=== PATIENT | female | born 1950 | race Caucasian/White ===

== ENCOUNTER 2018-08-06 09:44 | Inpatient (IN) | payer OTHER, MEDICARE ==
[~2018-08-06] VITALS: Ht 175.3 cm; Wt 128.4 kg
[2018-08-06] MEDS ORDERED: OMEPRAZOLE40 MG PO (09:53)
[2018-08-06] MEDS ORDERED: GLYBURIDE2.5 MG PO (09:53)
[2018-08-06] MEDS ORDERED: PAXIL40 MG PO (09:54)
[2018-08-06 10:37] LABS: BASOPHILS 0.2 % (0-2); EOSINOPHILS 0.4 % (0-7); HEMATOCRIT 36.3 % (36.0-48.0); IMMATURE GRANULOCYTES 0.3 % (0-5); LYMPHOCYTES 14.2 % (15-50); MCH 28.2 pg (26.0-34.0); MCHC 33.1 g/dL (31.0-37.0); MCV 85.4 fL (80.0-100.0); MEAN PLATELET VOLUME 8.9 fL (7.4-10.4); MONOCYTES 5.1 % (2-11); NEUTROPHILS 79.8 % (40-80); PLATELET COUNT 208 10x3/uL (130-400); RBC 4.25 10x6/uL (4.00-5.40); RDW 12.6 % (11.5-14.5); WBC 10.9 10x3/uL (4.8-10.8)
[2018-08-06 10:59] LABS: ALBUMIN 3.5 g/dL (3.4-5.0); ALKALINE PHOSPHATASE 93 U/L (46-116); ALT (SGPT) 19 U/L (10-68); BILIRUBIN - TOTAL 0.89 mg/dL (0.2-1.3); CALC OSMOLALITY 282 mosm/kg (275-300); CALCIUM 8.2 mg/dL (8.5-10.1); CARBON DIOXIDE 28.3 mmol/L (21.0-32.0); CHLORIDE - SERUM 98 mmol/L (98-107); CREATININE - SERUM 1.8 mg/dL (0.6-1.3); GLUCOSE 192 mg/dL (74-106); POTASSIUM - SERUM 4.4 mmol/L (3.5-5.1); PROTEIN - SERUM 7.9 g/dL (6.4-8.2); SODIUM 136 mmol/L (136-145); UREA NITROGEN 29 mg/dL (7-18); eGFR NON AFRICAN AMERICAN 30 mL/min (90-120)
[2018-08-06 11:02] LABS: AMYLASE - SERUM 36 U/L (25-115); LIPASE 150 U/L (73-393)
[2018-08-06 11:03] LABS: TROPONIN-I < 0.017 ng/mL (0.000-0.060)
--- NOTE | 2018-08-06 11:31 | NUR ---
ORANGE JUICE AND SANDWICH TRAY TO PATIENT.
[2018-08-06 11:32] LABS: APPEARANCE CLEAR (CLEAR); BILIRUBIN NEGATIVE (NEGATIVE); COLOR STRAW (YELLOW); GLUCOSE NEGATIVE (NEGATIVE); KETONE NEGATIVE (NEGATIVE); NITRITE NEGATIVE (NEGATIVE); PROTEIN NEGATIVE (NEGATIVE); UROBILINOGEN NORMAL (NORMAL)
[2018-08-06 11:36] LABS: BACTERIA NONE SEEN /hpf (NONE SEEN); EPITHELIAL CELLS RARE /hpf (0-5); RED CELLS - URINE RARE /hpf (0-5); WHITE CELLS - URINE NSEEN /hpf (0-5)
--- NOTE | 2018-08-06 14:20 | MORECARE ---
CASE MANAGEMENT DISCHARGE SUMMARY PATIENT: MARC LOCO UNIT: [id number] ADM DATE: 08/06/18 AGE: 68 : 50 SEX: F ROOM/BED: D.9528 AUTHOR: LAILA IRIZARRY PHYSICIAN: REFERRING PHYSICIAN: CHELLY MENJIVAR MD DATE OF SERVICE: 08/06/18 Discharge Plan Patient Name: MARC LOCO [facility] [facility] 1950 Planned Disposition: Home Hlth Svc w Plan Readm Anticipated Discharge Date: 08/11/18 Discharge Date: Expected LOS: 5 Initial Reviewer: [email or web address] Initial Review Date: 08/06/2018 Generated: 08/06/18 3:20 pm DCPIA - Discharge Planning Initial Assessment Updated by [email or web address]: Miriam Clinton on 08/06/18 2:17 pm * Is the patient Alert and Oriented? Yes * How many steps to enter\exit or inside your home? None * PCP Dr. Fleming * Pharmacy [facility] * Preadmission Environment Home Alone * ADLs Partial Dependent * Partial ADLs (Assistance needed) Dressing * Equipment Power Chair or Electric Scooter Shower Chair * List name and contact numbers for known caregivers / representatives who currently or will assist patient after discharge: Demian Loco - [facility] - [phone] * Verbal permission to speak to the caregivers and representatives has been obtained from the patient. Yes * Community resources currently utilized Home Health * Please name any agencies selected above. [facility] - LOLA signed to resume at discharge. * Additional services required to return to the preadmission environment? No * Can the patient safely return to the preadmission environment? Yes * Has this patient been hospitalized within the prior 30 days at any hospital? No Patient Name: MARC LOCO Page [id number] at 1420 All edits/amendments must be made on the electronic document DICTATION DATE: 08/06/181418 SENIOR TEST ANALYST: RUY 08/06/18 141 RPT#: [id number] DC DATE: STATUS: ADM IN [facility] [address] [place] [address] END OF REPORT
--- NOTE | 2018-08-06 14:38 | MORECARE ---
CASE MANAGEMENT DISCHARGE SUMMARY PATIENT: MARC LOCO UNIT: [id number] ADM DATE: 08/06/18 AGE: 68 : 50 SEX: F ROOM/BED: D.7292 AUTHOR: LAILA IRIZARRY PHYSICIAN: REFERRING PHYSICIAN: CHELLY MENJIVAR MD DATE OF SERVICE: 08/06/18 Discharge Plan Patient Name: MARC LOCO Facility: [facility]:[place] : 1950 Planned Disposition: Home Hlth Svc w Plan Readm Anticipated Discharge Date: 08/11/18 Discharge Date: Expected LOS: 5 Initial Reviewer: [email or web address] Initial Review Date: 08/06/2018 Generated: 08/06/18 3:38 pm DCP- Discharge Planning Updated by [email or web address]: Miriam Clinton on 08/06/18 1:[address] Patient Name: MARC LOCO Admission Status: ER Accout number: [id number] Admission Date: 08-06-2018 : 1950 Admission Diagnosis: Attending: CHELLY MENJIVAR Current LOS: 1 Anticipated DC Date: 08-11-2018 Planned Disposition: Home Hlth Svc w Plan Readm [facility] Discharge Planning Comments: CM met with patient to complete initial dc planning assessment. CM educated patient on the CM role and verbal consent given by patient to complete assessment. Patient lives at home alone on the 8th floor of an apartment building with elevator access. She has a friend that comes to her home everyday and assists her with her needs including getting dressed when she does not feel well enough to dress herself. She has a different friend that assists her with house work when needed. Patient currently has [facility] and wishes to resume at discharge. LOLA form signed by patient for resumption of Home Health. Signed form placed in chart and signed form given to patient. At discharge patient plans to return to her apartment alone with resumption of [facility] services and feels this is a safe discharge. Patient denied further known discharge needs at this time. CM will continue to follow and will assist as needed with dc plans/needs. Respite Worker: Miriam Clinton RN, [facility] DCPIA - Discharge Planning Initial Assessment Updated by [email or web address]: Miriam Clinton on 08/06/18 2:17 pm * Is the patient Alert and Oriented? Yes * How many steps to enter\exit or inside your home? None * PCP Dr. Fleming * Pharmacy [facility] * Preadmission Environment Home Alone * ADLs Partial Dependent * Partial ADLs (Assistance needed) Dressing * Equipment Power Chair or Electric Scooter Shower Chair * List name and contact numbers for known caregivers / representatives who currently or will assist patient after discharge: Demian Loco - brother - [phone] * Verbal permission to speak to the caregivers and representatives has been obtained from the patient. Yes * Community resources currently utilized Home Health * Please name any agencies selected above. [facility] - LOLA signed to resume at discharge. * Additional services required to return to the preadmission environment? No * Can the patient safely return to the preadmission environment? Yes * Has this patient been hospitalized within the prior 30 days at any hospital? No Last DP export: 08/06/18 1:20 p Patient Name: MARC LOCO Page 52797 at 1438 All edits/amendments must be made on the electronic document DICTATION DATE: 08/06/181437 REGIONAL GUIDE: RUY 08/06/181437 RPT#: [id number] DC DATE: STATUS: ADM IN [facility] [address] [place] [address] END OF REPORT
[2018-08-06 15:49] VITALS: BMI 41.9
--- NOTE | 2018-08-06 16:41 | NUR ---
BILAT DRSGS APPLIED TO LOWER EXTRMETIES.
[2018-08-06 19:44] VITALS: BP 143/69
[2018-08-06 20:00] VITALS: BP 141/64
--- NOTE | 2018-08-06 21:50 | NUR ---
PT ASKING FOR TRAMADAL FOR PAIN. GILDA DURAN PAGED. ORDER TO D/C MORPHINE AND START TRAMADOL. BED LOW CALL LIGHT WITHIN REACH. WILL CONTINUE TO MONITOR.
[2018-08-06 22:00] VITALS: BP 137/64
--- NOTE | 2018-08-07 01:21 | NUR ---
PT RESTING COMFORTABLY IN BED. PT IS ALERT AND ORIENTED X4. PT DENIES ANY NEEDS AT THIS TIME. BED LOW CALL LIGHT WITHIN REACH. WILL CONTINUE TO MONITOR.
--- NOTE | 2018-08-07 02:01 | NUR ---
PT COMPLAINS OF PAIN IN LOWER ABDOMINAL PAIN AND NAUSEA. PRN ZOFRAN GIVEN. WILL [id number] TO MONITOR.
[2018-08-07 03:44] LABS: BASOPHILS 0.3 % (0-2); EOSINOPHILS 0.8 % (0-7); HEMATOCRIT 35.1 % (36.0-48.0); HEMOGLOBIN 11.4 g/dL (12-16); IMMATURE GRANULOCYTES 0.4 % (0-5); LYMPHOCYTES 20.8 % (15-50); MCH 27.8 pg (26.0-34.0); MCHC 32.5 g/dL (31.0-37.0); MCV 85.6 fL (80.0-100.0); MEAN PLATELET VOLUME 8.8 fL (7.4-10.4); MONOCYTES 10.4 % (2-11); NEUTROPHILS 67.3 % (40-80); PLATELET COUNT 193 10x3/uL (130-400); RDW 12.6 % (11.5-14.5); WBC 10.9 10x3/uL (4.8-10.8)
[2018-08-07 04:00] VITALS: BP 140/67
[2018-08-07 04:03] LABS: ALBUMIN 3.1 g/dL (3.4-5.0); ANION GAP 11.5 mmol/L (8-16); BILIRUBIN - TOTAL 0.78 mg/dL (0.2-1.3); CARBON DIOXIDE 31.5 mmol/L (21.0-32.0); CREATININE - SERUM 2.1 mg/dL (0.6-1.3); MAGNESIUM - SERUM 2.2 mg/dL (1.8-2.4); PROTEIN - SERUM 7.3 g/dL (6.4-8.2)
--- NOTE | 2018-08-07 04:14 | NUR ---
I have reviewed this patient and I concur with the Shift Assessment completed by the Licensed Practical Nurse today this shift.
--- NOTE | 2018-08-07 04:36 | NUR ---
PT RESTING COMFORTABLY IN BED. RR EVEN AND UNLABORED. NO S/S OF DISTRESS. BED LOW CALL LIGHT WITHIN REACH.
[2018-08-07 10:51] VITALS: BMI 41.8
--- NOTE | 2018-08-07 10:52 | NUR ---
Pt has an open chronic wound on the left lateral lower leg measuring 8cm x 4cm x 0.2cm. She said she hit it on her wheelchair several weeks ago. The wound bed is pink with yellow. There is a moderate serous drainage with no odor. Both lower extremities are edematous and red from knees down to toes. On the right barry there is a 1cm x 1cm x 0.2cm open area that drains serous fluid. She states it opened up and started draining when her legs swelled up. Recommendations: -Daily dressing changes to both areas using maxorb ag on open areas. -Do not wrap legs tightly, only wrap to secure dressings. -elevate legs Wound care will continue monitoring.
[2018-08-07 13:14] VITALS: Ht 175.3 cm; Wt 128.4 kg
[2018-08-07 17:26] VITALS: BP 118/67
[2018-08-07 17:36] VITALS: BP 122/75
--- NOTE | 2018-08-07 17:50 | NUR ---
I have reviewed this patient and I concur with the Shift Assessment completed by the Licensed Practical Nurse today this shift.
--- NOTE | 2018-08-07 19:15 | NUR ---
ALERT/AWAKE SITTING ON SIDE OF BED. ORIENTED X4. ADVISED TO KEEP HER LEGS UP ON THE BED. BOTH LEGS FROM KNEES DOWN TO TOES ARE RED AND EDEMATOUS. DRESSINGS ON RT LEG SHAH C/D/I AND ON L LATERAL LOWER LEG C/D/I. ORIENTED TO CALL LIGHT FOR ANY NEEDS.
--- NOTE | 2018-08-07 20:30 | NUR ---
EXCHANGED BEDS FOR ONE WITH CONTROLS THAT WORKS. WOULD NOT LET ME ELEVATE HER LEGS WHICH WAS THE PURPOSE OF THE BED EXCHANGE. STATED "I CAN NOT SLEEP WITH MY LEGS UP, IT IS TO UNCOMFORTABLY".
[2018-08-07 21:17] VITALS: BP 149/60
--- NOTE | 2018-08-07 21:50 | NUR ---
ASSISTED TO BSC TO VOID AND BACK TO BED. CHECKED BS AT 144. NO INSULIN REQUIRED PER SLIDING SCALE.
--- NOTE | 2018-08-07 22:30 | NUR ---
SILK SCREEN FRAME ASSEMBLER GIVING A BED BATH AND CLEANING HAIR WITH SHAMPOO CAP. NO OTHER NEEDS VOICED.
[2018-08-08 01:04] VITALS: BP 113/59
--- NOTE | 2018-08-08 04:13 | NUR ---
PATIENT STATING SHE IS GOING TO GO HOME. DOES NOT LIKE THE BED. I OFFERED TO GET HER A RECLINER TO SEE IF THAT WILL BE MORE COMFORTABLE UNTIL DR MENJIVAR CAN ASSESS HER TODAY FOR DISCHARGE. SHE SAID "NO, I AM GOING HOME. I HAVE ALL THE MEDICAL EQUIPMENT AND HELP I NEED AT HOME". I EXPLAINED TO HER THAT SHE IS GETTING IV ANTIBIOTIC'S FOR HER CELLULITIS AND WOUND CARE FOR HER DIABETIC ULCER. SHE STATED "I CAN GET ALL THAT AT HOME".
[2018-08-08 04:35] LABS: BASOPHILS 0.3 % (0-2); EOSINOPHILS 1.7 % (0-7); HEMATOCRIT 34.7 % (36.0-48.0); HEMOGLOBIN 11.2 g/dL (12-16); IMMATURE GRANULOCYTES 0.3 % (0-5); LYMPHOCYTES 28.9 % (15-50); MCH 28.1 pg (26.0-34.0); MCHC 32.3 g/dL (31.0-37.0); MEAN PLATELET VOLUME 8.9 fL (7.4-10.4); MONOCYTES 8.8 % (2-11); PLATELET COUNT 204 10x3/uL (130-400); RBC 3.99 10x6/uL (4.00-5.40); RDW 12.8 % (11.5-14.5); WBC 9.4 10x3/uL (4.8-10.8)
[2018-08-08 04:52] LABS: ALBUMIN 3.1 g/dL (3.4-5.0); ANION GAP 14.3 mmol/L (8-16); BILIRUBIN - TOTAL 0.94 mg/dL (0.2-1.3); CALCIUM 7.8 mg/dL (8.5-10.1); CARBON DIOXIDE 26.6 mmol/L (21.0-32.0); CREATININE - SERUM 1.9 mg/dL (0.6-1.3); MAGNESIUM - SERUM 2.2 mg/dL (1.8-2.4); POTASSIUM - SERUM 3.9 mmol/L (3.5-5.1); PROTEIN - SERUM 7.1 g/dL (6.4-8.2)
--- NOTE | 2018-08-08 05:00 | NUR ---
CANNOT BE CONVINCED TO STAY. STATED SHE IS GOING TO LEAVE AND WILL SIGN THE AMA FORM.
--- NOTE | 2018-08-08 05:38 | NUR ---
SIGNED AMA FORM. A FRIEND ARRIVED TO TRANSPORT HER HOME. IV REMOVED. JOE MILLER ESCORTED VIA TO THEIR VEHICLE.
--- NOTE | 2018-08-09 10:54 | MORECARE ---
CASE MANAGEMENT DISCHARGE SUMMARY PATIENT: MARC LOCO UNIT: [id number] ADM DATE: 08/06/18 AGE: 68 : 50 SEX: F ROOM/BED: D.8306 AUTHOR: LAILA IRIZARRY PHYSICIAN: REFERRING PHYSICIAN: CHELLY MENJIVAR MD DATE OF SERVICE: 08/09/18 Discharge Plan Patient Name: MARC LOCO Facility: [facility]:[place] : 1950 Planned Disposition: Home Hlth Svc w Plan Readm Anticipated Discharge Date: 08/11/18 Discharge Date: 08/08/2018 Expected LOS: 5 Initial Reviewer: [email or web address] Initial Review Date: 08/06/2018 Generated: 08/09/18 11:54 am Comments DCP- Discharge Planning Updated by [email or web address]: Poly Borrego on 08/09/18 9:[address] CM RECEIVED TC FROM [employer] THIS AM. PATIENT WAS DISCHARGED TO HOME 08/08/18. PATIENT IS CURRENTLY ON SERVICE. CM FAXED CLINICAL , DISCHARGE MED LIST AND D/C INSTRUCTIONS TO [employer]. DCP- Discharge Planning Updated by [email or web address]: Miriam Clinton on 08/06/18 1:[address] Patient Name: MARC LOCO Admission Status: ER Accout number: [id number] Admission Date: 08-06-2018 : 1950 Admission Diagnosis: Attending: CHELLY MENJIVAR Current LOS: 1 Anticipated DC Date: 08-11-2018 Planned Disposition: Home Hlth Svc w Plan Readm [facility] Discharge Planning Comments: CM met with patient to complete initial dc planning assessment. CM educated patient on the CM role and verbal consent given by patient to complete assessment. Patient lives at home alone on the 8th floor of an apartment building with elevator access. She has a friend that comes to her home everyday and assists her with her needs including getting dressed when she does not feel well enough to dress herself. She has a different friend that assists her with house work when needed. Patient currently has [employer] [facility] and wishes to resume at discharge. LOLA form signed by patient for resumption of Home Health. Signed form placed in chart and signed form given to patient. At discharge patient plans to return to her apartment alone with resumption of [employer] services and feels this is a safe discharge. Patient denied further known discharge needs at this time. CM will continue to follow and will assist as needed with dc plans/needs. Conservation Biology Professor: Miriam Clinton RN, [facility] DCPIA - Discharge Planning Initial Assessment Updated by [email or web address]: Miriam Clinton on 08/06/18 2:17 pm * Is the patient Alert and Oriented? Yes * How many steps to enter\exit or inside your home? None * PCP Dr. Fleming * Pharmacy [facility] * Preadmission Environment Home Alone * ADLs Partial Dependent * Partial ADLs (Assistance needed) Dressing * Equipment Power Chair or Electric Scooter Shower Chair * List name and contact numbers for known caregivers / representatives who currently or will assist patient after discharge: Demian Loco - - [phone] * Verbal permission to speak to the caregivers and representatives has been obtained from the patient. Yes * Community resources currently utilized Home Health * Please name any agencies selected above. [facility] - [facility] signed to resume at discharge. * Additional services required to return to the preadmission environment? No * Can the patient safely return to the preadmission environment? Yes * Has this patient been hospitalized within the prior 30 days at any hospital? No Last DP export: 08/06/18 1:38 p Patient Name: MARC LOCO Page 61707 at 1054 All edits/amendments must be made on the electronic document DICTATION DATE: 08/09/18 105 ELECTRICIAN'S HELPER: RUY 08/09/18 1053 RPT#: [id number] DC DATE:08/08/18 STATUS: DIS IN [facility] [address] [place] [address] END OF REPORT
--- NOTE | 2018-08-10 08:06 | MORECARE ---
CASE MANAGEMENT DISCHARGE SUMMARY PATIENT: MARC LOCO UNIT: [id number] ADM DATE: 08/06/18 AGE: 68 : 50 SEX: F ROOM/BED: D.2106 AUTHOR: EDIE,DOC PHYSICIAN: REFERRING PHYSICIAN: CHELLY MENJIVAR MD DATE OF SERVICE: 08/10/18 Discharge Plan Patient Name: MARC LOCO Facility: [facility]:[place] : 1950 Planned Disposition: Home Health Service Anticipated Discharge Date: 08/08/18 Discharge Date: 08/08/2018 Expected LOS: 2 Initial Reviewer: [email or web address] Initial Review Date: 08/06/2018 Generated: 08/10/18 9:06 am Comments DCP- Discharge Planning Updated by [email or web address]: Poly Borrego on 08/09/18 9:[address] CM RECEIVED TC FROM [employer] THIS AM. PATIENT WAS DISCHARGED TO HOME 08/08/18. PATIENT IS CURRENTLY ON SERVICE. CM FAXED CLINICAL , DISCHARGE MED LIST AND D/C INSTRUCTIONS TO [employer]. DCP- Discharge Planning Updated by [email or web address]: Miriam Clinton on 08/06/18 1:[address] Patient Name: MARC LOCO Admission Status: ER Accout number: [id number] Admission Date: 08-06-2018 : 1950 Admission Diagnosis: Attending: CHELLY MENJIVAR Current LOS: 1 Anticipated DC Date: 08-11-2018 Planned Disposition: Home th Svc w Plan Readm [facility] Discharge Planning Comments: CM met with patient to complete initial dc planning assessment. CM educated patient on the CM role and verbal consent given by patient to complete assessment. Patient lives at home alone on the 8th floor of an apartment building with elevator access. She has a friend that comes to her home everyday and assists her with her needs including getting dressed when she does not feel well enough to dress herself. She has a different friend that assists her with house work when needed. Patient currently has [facility] and wishes to resume at discharge. LOLA form signed by patient for resumption of Home Health. Signed form placed in chart and signed form given to patient. At discharge patient plans to return to her apartment alone with resumption of [facility] services and feels this is a safe discharge. Patient denied further known discharge needs at this time. CM will continue to follow and will assist as needed with dc plans/needs. Mannequin Mold Maker: Miriam Clinton RN, [facility] DCPIA - Discharge Planning Initial Assessment Updated by [email or web address]: Miriam Clinton on 08/06/18 2:17 pm * Is the patient Alert and Oriented? Yes * How many steps to enter\exit or inside your home? None * PCP Dr. Fleming * Pharmacy [facility] * Preadmission Environment Home Alone * ADLs Partial Dependent * Partial ADLs (Assistance needed) Dressing * Equipment Power Chair or Electric Scooter Shower Chair * List name and contact numbers for known caregivers / representatives who currently or will assist patient after discharge: Demian Loco - [facility] - [phone] * Verbal permission to speak to the caregivers and representatives has been obtained from the patient. Yes * Community resources currently utilized Home Health * Please name any agencies selected above. [facility] - [facility] signed to resume at discharge. * Additional services required to return to the preadmission environment? No * Can the patient safely return to the preadmission environment? Yes * Has this patient been hospitalized within the prior 30 days at any hospital? No Last DP export: 08/09/18 9:54 a Patient Name: MARC LOCO Page 09506 at 0806 All edits/amendments must be made on the electronic document DICTATION DATE: 08/10/18805 GEL COATER: RUY 08/10/18 08 RPT#: [id number] DC DATE:08/08/18 STATUS: DIS IN [facility] [address] [place] [address] END OF REPORT
== END 2018-08-08 05:40 | disposition left against medical advice (07) | DRG 638 ==
LOC: D.ER 09:44 → D.M2 13:42 → D.EDHOLD 13:42 → D.M2 13:43
PROVIDERS: Emergency Medicine; ADMIT Family Medicine; ATTEND Family Medicine
DX: E11.621 Type 2 diabetes mellitus with foot ulcer (principal); L03.116 Cellulitis of left lower limb; L03.115 Cellulitis of right lower limb; E11.628 Type 2 diabetes mellitus with other skin complications; E11.65 Type 2 diabetes mellitus with hyperglycemia; G80.9 Cerebral palsy, unspecified; I50.9 Heart failure, unspecified; F32.9 Major depressive disorder, single episode, unspecified; F41.9 Anxiety disorder, unspecified; N17.9 Acute kidney failure, unspecified; R51 Headache; I87.2 Venous insufficiency (chronic) (peripheral)

== ENCOUNTER 2018-10-24 15:09 | Inpatient (IN) | payer OTHER, MEDICARE ==
[~2018-10-24 15:09] MED LIST: GLYBURIDE2.5 MG PO; OMEPRAZOLE40 MG PO; PAXIL40 MG PO
--- NOTE | 2018-10-24 16:24 | NUR ---
PT REMOVED HER C-COLLAR, STATES SHE COULD NOT STAND IT ANOTHER MINUTE.
[2018-10-24 18:19] LABS: BASOPHILS 0.3 % (0-2); EOSINOPHILS 1.2 % (0-7); HEMATOCRIT 36.5 % (36.0-48.0); HEMOGLOBIN 11.9 g/dL (12-16); IMMATURE GRANULOCYTES 0.4 % (0-5); LYMPHOCYTES 21.7 % (15-50); MCH 26.9 pg (26.0-34.0); MCHC 32.6 g/dL (31.0-37.0); MCV 82.4 fL (80.0-100.0); MEAN PLATELET VOLUME 9.1 fL (7.4-10.4); MONOCYTES 7.7 % (2-11); NEUTROPHILS 68.7 % (40-80); PLATELET COUNT 216 10x3/uL (130-400); RBC 4.43 10x6/uL (4.00-5.40); RDW 13.1 % (11.5-14.5); WBC 11.1 10x3/uL (4.8-10.8)
[2018-10-24 18:36] LABS: ALBUMIN 3.4 g/dL (3.4-5.0); ANION GAP 11.7 mmol/L (8-16); BILIRUBIN - TOTAL 0.93 mg/dL (0.2-1.3); CALCIUM 8.9 mg/dL (8.5-10.1); CARBON DIOXIDE 29.4 mmol/L (21.0-32.0); CREATININE - SERUM 1.2 mg/dL (0.6-1.3); POTASSIUM - SERUM 4.1 mmol/L (3.5-5.1); PROTEIN - SERUM 7.7 g/dL (6.4-8.2)
[2018-10-24 20:00] VITALS: BP 130/59
[2018-10-24 23:34] VITALS: BP 130/59; BMI 38.5
--- NOTE | 2018-10-24 23:39 | NUR ---
ASSISTED PT UP TO BSC...2 PERSON ASSIST. SHE VOIDED 100 ML YELLOW URINE. GAVE MORPHINE 4 MG IVP AND BENADRYL 25 MG IVP FOR C/O PAIN. WILL MONITOR FOR EFFECTIVENESS. POSITIONED FOR COMFORT.
[2018-10-25 07:12] LABS: BASOPHILS 0.3 % (0-2); EOSINOPHILS 1.5 % (0-7); HEMATOCRIT 38.5 % (36.0-48.0); HEMOGLOBIN 12.2 g/dL (12-16); IMMATURE GRANULOCYTES 0.2 % (0-5); MCH 26.9 pg (26.0-34.0); MCHC 31.7 g/dL (31.0-37.0); MEAN PLATELET VOLUME 9.5 fL (7.4-10.4); MONOCYTES 8.2 % (2-11); NEUTROPHILS 63.8 % (40-80); RBC 4.54 10x6/uL (4.00-5.40); RDW 13.6 % (11.5-14.5); WBC 13.1 10x3/uL (4.8-10.8)
[2018-10-25 07:13] LABS: MCV 84.8 fL (80.0-100.0); PLATELET COUNT 286 10x3/uL (130-400)
[2018-10-25 07:57] LABS: ALBUMIN 3.6 g/dL (3.4-5.0); BILIRUBIN - TOTAL 1.19 mg/dL (0.2-1.3); CREATININE - SERUM 1.5 mg/dL (0.6-1.3); POTASSIUM - SERUM 4.3 mmol/L (3.5-5.1); PROTEIN - SERUM 8.1 g/dL (6.4-8.2)
[2018-10-25 08:00] LABS: ANION GAP 19.7 mmol/L (8-16); CARBON DIOXIDE 21.6 mmol/L (21.0-32.0)
--- NOTE | 2018-10-25 08:42 | NUR ---
AAOX4. ON ROOM AIR, COMPLETE BED CHANGE WITH PARTIAL BED BATH GIVEN, IV TO LEFT AC, PATENT, SALINE LOCKED, INCONTIENT BRIEF APPLIED. DENIES ANY OTHER NEEDS OR DISCOMFORTS, BED LOWERED AND LOCKED, CALL LIGHT WITHIN REACH. CPOC
[2018-10-25 09:25] VITALS: BP 133/66
[2018-10-25 11:51] VITALS: BMI 38.5
--- NOTE | 2018-10-25 12:01 | NUR ---
C/O DISCOMFORT IN LOWER ABD, DISTENTION PALPABLE OF BLADDER, BLADDER SCAN PERFORMED, 699ML NOTED, DR. GUERRA SPOKE WITH PT DURING ROUNDS, ORDERED IN AND OUT CATH THREE TIMES A DAY. DENIES ANY OTHER NEEDS OR DISCOMFORTS, BED LOWERED AND LOCKED, CALL LIGHT WITHIN REACH. CPOC
[2018-10-25 13:00] VITALS: BP 112/55
--- NOTE | 2018-10-25 15:51 | NUR ---
IN AND OUT CATHER PERFORMED, LESS THAN 100MLHR. CLEAR YELLOW URINE
--- NOTE | 2018-10-25 17:14 | NUR ---
SCD'S NOT ON DUE TO BILATERAL LOWER LEG CELLULITIS.
--- NOTE | 2018-10-25 17:15 | NUR ---
SCD'S NOT ON DUE TO LOWER EXTREMITY CELLULITIS.
[2018-10-25 18:20] VITALS: BP 140/63
--- NOTE | 2018-10-25 20:00 | NUR ---
ALERT RESTING IN BED, SEE SHIFT ASSESSMENT, CALL LIGHT IN REACH
[2018-10-26 01:27] LABS: APPEARANCE HAZY (CLEAR); BACTERIA MODERATE /hpf (NONE SEEN); BILIRUBIN NEGATIVE (NEGATIVE); COLOR YELLOW (YELLOW); GLUCOSE 50 mg/dL (NEGATIVE); KETONE NEGATIVE (NEGATIVE); NITRITE NEGATIVE (NEGATIVE); PROTEIN TRACE mg/dL (NEGATIVE); RED CELLS - URINE 0-5 /hpf (0-5); UROBILINOGEN NORMAL (NORMAL); WHITE CELLS - URINE 25-50 /hpf (0-5)
[2018-10-26 04:00] VITALS: BP 147/47
--- NOTE | 2018-10-26 04:28 | NUR ---
CALLED TO ROOM BY PT STATES ALL THIS STUFF HAS GOT TO GO, REMOVED TELEMENTRY, AND SCD'S, IV SALINE LOCKED PER PT REQUEST, ASSISTED UP TO BEDSIDE COMODE WITH ASSIST X 2 VOIDED AND ASSISTED BACK TO BED
--- NOTE | 2018-10-26 07:44 | NUR ---
ALERT AND ORIENTED X 3. LUNGS CLEAR BILATERALLY IN ALL BANG. HEART SOUNDS S1 AND S2 HEARD IN ALL BANG. BOWEL SOUNDS ACTIVE X 4. STATES IS HAVING A LOT OF BMS. CHECKED SHEETS. NO BM AT THIS TIME. SKIN TEAR BOTED TO LEFT ARM WITH DRSG IN PLACE. STASIS ULCER TO LEFT LEG WITH DRSG IN PLACE. CELLULITIS TO BLE. DENIES PAIN. REQUESTS TO GO HOME TODAY AND COME BACK TOMORROW FOR OP PROCEDURE. CASE MANAGEMENT NOTIFIED. DENIES FURTHER NEEDS. BED LOW. CALL CORDON AND PERSONAL ITEMS IN REACH. WILL CONTINUE TO MONITOR.
[2018-10-26 08:45] VITALS: BP 154/66
--- NOTE | 2018-10-26 09:36 | NUR ---
SPOKE WITH DR GUERRA ABOUT PT DESIRE TO DC AND COME BACK TOMORROW FOR OP PROCEDURE. STATED "THAT'S FINE. TALK TO PRIMARY ABOUT DISCHARGE." NOTIFIED LAUREN LI. LAUREN STATED WILL HAVE TO COME SEE PATIENT FIRST. PATIENT NOTIFIED.
--- NOTE | 2018-10-26 09:54 | NUR ---
LAB CAME TO GET BLOOD FROM PATIENT. PATIENT REFUSED.
--- NOTE | 2018-10-26 10:34 | NUR ---
REFUSES TO BE CONNECTED TO IV FLUIDS
--- NOTE | 2018-10-26 10:48 | NUR ---
LAUREN LI STATED PATIENT NEEDS PT CONSULT BEFORE ABLE TO DC HOME. PATIENT NOTIFIED. VERY ANGRY. DEMADED TO SEE CUSTOM VAN CONVERTER NOW. CUSTOM VAN CONVERTER NOTIFIED. PATIENT CALLED DR BELTRAN'S OFFICE AND YELLING ON PHONE. ATTEMPTED TO CALM PATIENT WITHOUT SUCCESS. CUSTOM VAN CONVERTER TO SEE PATIENT.
--- NOTE | 2018-10-26 11:15 | NUR ---
ASSITED TO BEDPAN. STATES WANT TO TALK TO LAUREN NOW. STATES IF CANNOT BE DISCHARGED WILL LEAVE AMA. LAUREN SULLIVANTT NOTIFIED.
--- NOTE | 2018-10-26 11:34 | NUR ---
CLINICAL DOCUMENTATION DEVELOPER STATES PATIENT WANTS TO LEAVE AMA. AMA PAPERWORK PROVIDED.
--- NOTE | 2018-10-26 11:40 | NUR ---
AMA PAPERWORK SIGNED IV REMOVED FROM [facility] WITH TIP INTACT. PATIENT STATES FRIEND WILL BE AT HOSPITAL TO GET PATIENT IN 45 MINUTES.
--- NOTE | 2018-10-26 11:48 | MORECARE ---
CASE MANAGEMENT DISCHARGE SUMMARY PATIENT: MARC LOCO UNIT: [id number] ADM DATE: 10/24/18 AGE: 68 : 50 SEX: F ROOM/BED: D.2237 AUTHOR: EDIE,DOC PHYSICIAN: REFERRING PHYSICIAN: IHSAN REY MD DATE OF SERVICE: 10/26/18 Discharge Plan Patient Name: MARC LOCO Facility: [facility]:[place] : 1950 Planned Disposition: Home Anticipated Discharge Date: 10/26/18 Discharge Date: Expected LOS: 2 Initial Reviewer: [email or web address] Initial Review Date: 10/26/2018 Generated: 10/26/18 12:48 pm Comments DCP- Discharge Planning Updated by [email or web address]: Jessica Vega on 10/26/18 10:[address] Patient Name: MARC LOCO Admission Status: ER Accout number: [id number] Admission Date: 10-24-2018 : 1950 Admission Diagnosis:CELLULITIS, UNSPECIFIED Attending: IHSAN REY Current LOS: 2 Anticipated DC Date: 10-26-2018 Planned Disposition: Home Primary Insurance: [facility] Discharge Planning Comments: Patient is signing papers to go AMA. States she doesn't want to stay here anymore. States "I hate this hospital." States she lives at [facility] on the 8th floor. She uses the elevator. States she has 2 wheelchairs at home and her friend that lives in [facility] will get her wheelchair and come and get her. States she usually takes the [employer] bus for transportation. She declines home health at this time, states she has had [facility] in the past but does not need them now. CM will continue to follow and assist with discharge planning/needs. Development Technical Lead: Jessica Vega DCPIA - Discharge Planning Initial Assessment Updated by [email or web address]: Jessica Vega on 10/26/18 11:44 am * Is the patient Alert and Oriented? Yes * How many steps to enter\\exit or inside your home? 0/0 * PCP Dr. Fleming * Pharmacy [facility] * Preadmission Environment Home Alone * ADLs Partial Dependent * Partial ADLs (Assistance needed) Ambulation * Equipment Wheelchair * Other Equipment Electric wheelchair * List name and contact numbers for known caregivers / representatives who currently or will assist patient after discharge: Demian Vivar - [facility] - [phone] * Verbal permission to speak to the caregivers and representatives has been obtained from the patient. No * Community resources currently utilized [facility] * Please name any agencies selected above. [employer] * Additional services required to return to the preadmission environment? No * Can the patient safely return to the preadmission environment? Yes * Has this patient been hospitalized within the prior 30 days at any hospital? No Patient Name: MARC LOCO Page [id number] at 1148 All edits/amendments must be made on the electronic document DICTATION DATE: 10/26/181146 INDUSTRIAL MAINTENANCE TECH: RUY 10/26/181146 RPT#: [id number] DC DATE: STATUS: ADM IN [facility] [address] [place] [address] END OF REPORT
--- NOTE | 2018-10-26 12:00 | NUR ---
PATIENT ASSISTED TO GET DRESSED PER NURSE AND SIDE PULLER. BAGS PROVIDED FOR PERSONAL ITEMS. ALL PERSONAL ITEMS PLACED IN BAGS. DENIES FURTHER NEEDS.
--- NOTE | 2018-10-26 12:10 | NUR ---
PATIENT SPOKE WITH DR HERNANDEZ AND LAUREN LI. STATES PATIENT CAN LEAVE. CUSTOMER EXPERT WORKING ON PAPERWORK. PATIENT STATES IS GLAD GETS TO SIGN PAPERWORK SO SHE DOESN'T HAVE TO LEAVE AMA.
[2018-10-26] MEDS ORDERED: LEVAQUIN750 MG PO (12:18)
--- NOTE | 2018-10-26 12:30 | NUR ---
PATIENT YELLING OUT STATING IS LEAVING AMA AND TO BRING WC TO ROOM. ATTEMPTED TO PROVIDE WITH DC PAPERWORK. REFUSED. STATES "I'M LEAVING. I'M NOT SIGNING ANYTHING ELSE. I DON'T CARE." YELLING AT STAFF. ASSISTED TO WC PER NURSE AND DRYING RACK CHANGER. TAKEN DOWNSTAIRS BY STAFF.
--- NOTE | 2018-10-28 16:24 | MORECARE ---
CASE MANAGEMENT DISCHARGE SUMMARY PATIENT: MARC LOCO UNIT: [id number] ADM DATE: 10/24/18 AGE: 68 : 50 SEX: F ROOM/BED: D.2237 AUTHOR: EDIE,DOC PHYSICIAN: REFERRING PHYSICIAN: IHSAN REY MD DATE OF SERVICE: 10/28/18 Discharge Plan Patient Name: MARC LOCO Facility: [facility]:[place] : 1950 Planned Disposition: Home Anticipated Discharge Date: 10/26/18 Discharge Date: 10/26/2018 Expected LOS: 2 Initial Reviewer: [email or web address] Initial Review Date: 10/26/2018 Generated: 10/28/18 5:23 pm Comments DCP- Discharge Planning Updated by [email or web address]: Jessica Vega on 10/26/18 10:[address] Patient Name: MARC LOCO Admission Status: ER Accout number: [id number] Admission Date: 10-24-2018 : 1950 Admission Diagnosis:CELLULITIS, UNSPECIFIED Attending: IHSAN REY Current LOS: 2 Anticipated DC Date: 10-26-2018 Planned Disposition: Home Primary Insurance: [employer] Discharge Planning Comments: Patient is signing papers to go AMA. States she doesn't want to stay here anymore. States "I hate this [facility]." States she lives at [facility] on the 8th floor. She uses the elevator. States she has 2 wheelchairs at home and her friend that lives in [facility] will get her wheelchair and come and get her. States she usually takes the [employer] bus for transportation. She declines home health at this time, states she has had [facility] in the past but does not need them now. CM will continue to follow and assist with discharge planning/needs. Addressing Machine Operator: Jessica Vega DCPIA - Discharge Planning Initial Assessment Updated by [email or web address]: Jessica Vega on 10/26/18 11:44 am * Is the patient Alert and Oriented? Yes * How many steps to enter\\exit or inside your home? 0/0 * PCP Dr. Fleming * Pharmacy [facility] * Preadmission Environment Home Alone * ADLs Partial Dependent * Partial ADLs (Assistance needed) Ambulation * Equipment Wheelchair * Other Equipment Electric wheelchair * List name and contact numbers for known caregivers / representatives who currently or will assist patient after discharge: Demian Vivar - - [phone] * Verbal permission to speak to the caregivers and representatives has been obtained from the patient. No * Community resources currently utilized Private Duty Care * Please name any agencies selected above. [employer] * Additional services required to return to the preadmission environment? No * Can the patient safely return to the preadmission environment? Yes * Has this patient been hospitalized within the prior 30 days at any hospital? No Last DP export: 10/26/18 10:48 a Patient Name: MARC LOCO Page [id number] at 1624 All edits/amendments must be made on the electronic document DICTATION DATE: 10/28/181622 ENGLISH TEACHER: RUY 10/28/183 RPT#: [id number] DC DATE:10/26/18 STATUS: DIS IN [facility] [address] [place] [address] END OF REPORT
== END 2018-10-26 12:42 | disposition left against medical advice (07) | DRG 603 ==
LOC: D.ER 15:09 → D.MS 18:43
PROVIDERS: Family Medicine; ADMIT Internal Medicine Nephrology; ATTEND Internal Medicine Nephrology
DX: L03.90 Cellulitis, unspecified (principal); N17.9 Acute kidney failure, unspecified; L97.919 Non-pressure chronic ulcer of unspecified part of right lower leg with unspecified severity; L97.929 Non-pressure chronic ulcer of unspecified part of left lower leg with unspecified severity; S05.12XA Contusion of eyeball and orbital tissues, left eye, initial encounter; V89.0XXA Person injured in unspecified motor-vehicle accident, nontraffic, initial encounter; V09.9XXA Pedestrian injured in unspecified transport accident, initial encounter; S40.011A Contusion of right shoulder, initial encounter; S62.646A Nondisplaced fracture of proximal phalanx of right little finger, initial encounter for closed fracture; G80.9 Cerebral palsy, unspecified; E13.40 Other specified diabetes mellitus with diabetic neuropathy, unspecified; N20.0 Calculus of kidney; N39.3 Stress incontinence (female) (male); I83.009 Varicose veins of unspecified lower extremity with ulcer of unspecified site

== ENCOUNTER 2019-02-03 14:14 | Inpatient (IN) | payer OTHER, MEDICAID ==
[~2019-02-03] VITALS: Ht 175.3 cm; Wt 108.4 kg
[~2019-02-03 14:14] MED LIST changes: +LEVAQUIN750 MG PO
[2019-02-03] MEDS ORDERED: GLIMEPIRIDE1 MG PO (14:19)
[2019-02-03] MEDS ORDERED: VRAYLAR3 MG PO (14:21)
[2019-02-03] MEDS ORDERED: LASIX40 MG PO (14:22)
[2019-02-03 14:53] LABS: BASOPHILS 0.2 % (0-2); EOSINOPHILS 1.9 % (0-7); HEMATOCRIT 35.1 % (36.0-48.0); HEMOGLOBIN 11.7 g/dL (12-16); IMMATURE GRANULOCYTES 0.3 % (0-5); LYMPHOCYTES 24.5 % (15-50); MCH 28.2 pg (26.0-34.0); MCHC 33.3 g/dL (31.0-37.0); MCV 84.6 fL (80.0-100.0); MEAN PLATELET VOLUME 8.7 fL (7.4-10.4); MONOCYTES 5.4 % (2-11); NEUTROPHILS 67.7 % (40-80); RBC 4.15 10x6/uL (4.00-5.40); RDW 13.4 % (11.5-14.5); WBC 9.8 10x3/uL (4.8-10.8)
[2019-02-03 15:00] VITALS: BP 140/63
[2019-02-03 15:05] LABS: PLATELET COUNT 198 10x3/uL (130-400)
[2019-02-03 15:08] LABS: ALBUMIN 3.2 g/dL (3.4-5.0); ANION GAP 13.7 mmol/L (8-16); BILIRUBIN - TOTAL 0.72 mg/dL (0.2-1.3); CALCIUM 7.9 mg/dL (8.5-10.1); CARBON DIOXIDE 28.8 mmol/L (21.0-32.0); CREATININE - SERUM 1.3 mg/dL (0.6-1.3); POTASSIUM - SERUM 3.5 mmol/L (3.5-5.1); PROTEIN - SERUM 7.3 g/dL (6.4-8.2)
[2019-02-03 16:00] VITALS: BP 141/56
[2019-02-03 16:49] LABS: APPEARANCE CLEAR (CLEAR); BILIRUBIN NEGATIVE (NEGATIVE); COLOR YELLOW (YELLOW); GLUCOSE 50 mg/dL (NEGATIVE); KETONE NEGATIVE (NEGATIVE); NITRITE NEGATIVE (NEGATIVE); PROTEIN NEGATIVE (NEGATIVE); SPECIFIC GRAVITY 1.015 (1.005-1.020); UROBILINOGEN NORMAL (NORMAL)
[2019-02-03 16:51] LABS: BACTERIA FEW /hpf (NEGATIVE); EPITHELIAL CELLS 0-5 /hpf (0-5); RED CELLS - URINE 0-5 /hpf (0-5); WHITE CELLS - URINE OCC /hpf (NEGATIVE)
[2019-02-03 17:00] VITALS: BP 151/52
--- NOTE | 2019-02-03 17:30 | NUR ---
RECEIVED PT FROM ER STAFF. IV TO THE LT FOREARM INFUSING ABX AND BUMEX DRIP. REDNESS AND +3 EDEMA NOTED TO EPI LOWER LEGS. EDUCATED AND APPLIED YANICK TO PT. REFUSED BLOOD CULTURES BUT AFTER EDUCATING PT THE NEED FOR THEM SHE AGREED TO IT. A/O WITH NO SIGNS OF ACUTE DISTRESS NOTED. DENIES ANY FURTHER NEEDS.
[2019-02-03 21:20] VITALS: BP 140/70; BMI 35.3
[2019-02-04 01:03] VITALS: BP 132/69
[2019-02-04 03:10] LABS: UDS - AMPHET NEGATIVE QUAL (NEGATIVE); UDS - BARB NEGATIVE QUAL (NEGATIVE); UDS - BENZO NEGATIVE QUAL (NEGATIVE); UDS - COCAINE NEGATIVE QUAL (NEGATIVE); UDS - OPIATE NEGATIVE QUAL (NEGATIVE); UDS - PCP NEGATIVE QUAL (NEGATIVE); UDS - THC NEGATIVE QUAL (NEGATIVE)
--- NOTE | 2019-02-04 04:40 | NUR ---
AFTER GIVING ULTRAM FOR PAIN TO THE LT ARM PT VOICES PAIN TO THE LT CHEST BUT STATES THAT HER PAIN IS AT 5/10. AFTER WALKING OUT OF THE ROOM, HEARD PT CRYING. WENT BACK INTO ROOM WITH PT CRYING SAYING THAT SHE WANTED TO GO TO SLEEP AND THAT SHE DIDN'T FEEL RIGHT. CONSULTED WITH ANOTHER NURSE AND WENT INTO THE ROOM TOGETHER. PT HAD STOPPED CRYING BUT STATED THAT SHE WAS STILL HAVING LT CHEST AND ARM PAIN THAT IS 8/10. BP-116/50,HR-68, [id number]-44. CALLED [facility] FOR ORDERS. WENT BACK INTO ROOM TO APPLY O2 AND PT REFUSED AND GIVE BENADRYL, STATING IT MADE HER ITCH. HAD TO EDUCATE PT ON THE NEED FOR EKG AND LAB AND ENDED ALLOWING US TO TREAT HER. PT FELT THIS WAS UNNECESSARY AND SHE THOUGHT IT WAS GAS PAIN. PT LAYING IN BED WITH NO DISTRESS NOTED. WILL CONTINUE TO MONITOR.
[2019-02-04 04:57] LABS: BASOPHILS 0.4 % (0-2); EOSINOPHILS 1.6 % (0-7); HEMATOCRIT 37.2 % (36.0-48.0); HEMOGLOBIN 12.2 g/dL (12-16); IMMATURE GRANULOCYTES 0.3 % (0-5); LYMPHOCYTES 25.2 % (15-50); MCH 27.5 pg (26.0-34.0); MCHC 32.8 g/dL (31.0-37.0); MEAN PLATELET VOLUME 8.7 fL (7.4-10.4); MONOCYTES 6.9 % (2-11); NEUTROPHILS 65.6 % (40-80); PLATELET COUNT 206 10x3/uL (130-400); RBC 4.43 10x6/uL (4.00-5.40); RDW 13.3 % (11.5-14.5); WBC 10.1 10x3/uL (4.8-10.8)
[2019-02-04 04:58] VITALS: BP 95/51
[2019-02-04 05:16] LABS: ANION GAP 10.4 mmol/L (8-16); CALCIUM 8.3 mg/dL (8.5-10.1); CARBON DIOXIDE 34.1 mmol/L (21.0-32.0); CREATININE - SERUM 1.4 mg/dL (0.6-1.3); MAGNESIUM - SERUM 1.5 mg/dL (1.8-2.4); PHOSPHOROUS 3.9 mg/dL (2.5-4.9); POTASSIUM - SERUM 3.5 mmol/L (3.5-5.1)
[2019-02-04 05:20] LABS: APTT 25.7 SECONDS (22.8-39.4); INR 0.95 (0.85-1.17); PROTIME 12.2 SECONDS (11.6-15.0)
[2019-02-04 05:23] LABS: CKMB 0.9 U/L (0.0-3.6); CREATINE KINASE 57 UL (21-215)
[2019-02-04 05:24] LABS: TROPONIN-I < 0.017 ng/mL (0.000-0.060)
--- NOTE | 2019-02-04 07:15 | NUR ---
REFUSED TREATMENT FOR MAGNESIUM. CONTINUE WITH PLAN OF CARE.
--- NOTE | 2019-02-04 07:30 | NUR ---
REPORT RECIEVED ASSUMED CARE. PATIENT IN BED WITH IV INTACT. REFUSED MAG FROM NIGHT NURSE. PLACED ON BEDPAN. CALL LIGHT WITHIN REACH.
--- NOTE | 2019-02-04 08:00 | NUR ---
REFUSED BS. REFUSES SCDS, REFUSES TELEMETRY. IV INTACT. NO COMPLAINTS OR SIGNS OF DISTRESS. CHANGED PAD AT THIS TIME. CALL LIGHT WITHIN REACH.
--- NOTE | 2019-02-04 08:40 | NUR ---
PATIENT UPSET BECAUSE SENIOR STOCK PLAN ADMINISTRATOR TOLD HER SHE WOULD BE RIGHT BACK TO PUT HER ON THE BEDPAN AND FIX HER PURE WICK AND NEVER CAME BACK. ASKED SENIOR STOCK PLAN ADMINISTRATOR TO GO CLEAN PATIENT UP AT THIS TIME. PATIENT IV INTACT. NO OTHER COMPLAINTS. CALL LIGHT WITHIN REACH.
--- NOTE | 2019-02-04 09:15 | NUR ---
PATIENT PLACED ON BED SORTO AND TAKEN OFF AT THIS TIME. IV INTACT. CALL LIGHT IWJOHN HO.
[2019-02-04 09:26] VITALS: BP 146/87
--- NOTE | 2019-02-04 09:30 | NUR ---
ASSISTED PATIENT ON BP AGAIN.
[2019-02-04 09:50] VITALS: Ht 175.3 cm; Wt 108.4 kg
--- NOTE | 2019-02-04 10:50 | NUR ---
GAVE PATIENT SCHEDULED MEDS AND MAG IV 1 GRAM FOR LOW MAGNESIUM PER EP. IV INTACT. CALL LIGHT WITHIN REACH.
--- NOTE | 2019-02-04 12:00 | NUR ---
PATIENT WANTS TO LEAVE AMA AT THIS TIME. NOTIFIED TAI GATE OPERATOR. TAI INTO ROOM TO TALK TO PATIENT.
--- NOTE | 2019-02-04 12:50 | NUR ---
PLACED BENAVIDES AT THIS TIME WITH DIRECT MARKETING COORDINATOR ASSISTANCE. PATIENT REFUSES TO LEAVE A STATLOCK ON HER LEG TO KEEP BENAVIDES FROM PULLING AND CAUSING PROBLEMS. EXPLAINED TO PATIENT AND PATIENT STILL REFUSES TO LEAVE STATLOCK ON BECAUSE SHE SAYS SHE HAS TO SLEEP WITH HER LEGS CROSSED AND IS UNABLE TO KEEP HER LEGS CROSSED WITH THE STATLOCK "DIGGING" INTO HER SKIN. PATIENT ALLOWED TAPE TO BE PLACED INSTEAD OF STATLOCK AT THIS TIME. IV INTACT. CALL LIGHT WITHIN REACH. FRIEND AT BEDSIDE.
--- NOTE | 2019-02-04 15:00 | NUR ---
PATIENT UNNA BOOTS PLACED BY JEN VO AT THIS TIME.
--- NOTE | 2019-02-04 15:15 | NUR ---
PATIENT RECIEVED ULTRAM FOR PAIN AND REFUSED HUMALOG FOR BS 205. IV INTACT. NO COMPLAINTS. CALL LIGHT WITHIN REACH.
--- NOTE | 2019-02-04 16:00 | NUR ---
PATIENT REFUSED ECG ORDERED FOR 1606
[2019-02-04 16:29] VITALS: BP 132/72
--- NOTE | 2019-02-04 16:39 | MORECARE ---
CASE MANAGEMENT DISCHARGE SUMMARY PATIENT: MARC LOCO UNIT: [id number] ADM DATE: 02/03/19 AGE: 68 : 50 SEX: F ROOM/BED: D.2225 AUTHOR: LAILA IRIZARRY PHYSICIAN: REFERRING PHYSICIAN: SAHIL EMERSON MD DATE OF SERVICE: 02/04/19 Discharge Plan Patient Name: MARC LOCO [facility] [facility] 1950 Planned Disposition: Home Anticipated Discharge Date: Discharge Date: Expected LOS: Initial Reviewer: [email or web address] Initial Review Date: 02/04/2019 Generated: 02/04/19 5:39 pm DCPIA - Discharge Planning Initial Assessment Updated by [email or web address]: Melani Juarez on 02/04/19 4:39 pm * Is the patient Alert and Oriented? Yes * PCP DEVIN * Pharmacy [facility] * Preadmission Environment Home with Family * ADLs Independent * Other Equipment ELECTRIC WHEELCHAIR * Community resources currently utilized None * Additional services required to return to the preadmission environment? No * Can the patient safely return to the preadmission environment? Yes * Has this patient been hospitalized within the prior 30 days at any hospital? No Patient Name: MARC LOCO Page [id number] at 1639 All edits/amendments must be made on the electronic document DICTATION DATE: 02/04/191637 POLICY WRITER TYPIST: RUY 02/04/19 1638 RPT#: [id number] [place] DATE: STATUS: ADM IN [facility] [address] [place] [address] END OF REPORT
--- NOTE | 2019-02-04 16:51 | MORECARE ---
CASE MANAGEMENT DISCHARGE SUMMARY PATIENT: MARC LOCO UNIT: [id number] ADM DATE: 02/03/19 AGE: 68 : 50 SEX: F ROOM/BED: D.2225 AUTHOR: LAILA IRIZARRY PHYSICIAN: REFERRING PHYSICIAN: SAHIL EMERSON MD DATE OF SERVICE: 02/04/19 Discharge Plan Patient Name: MARC LOCO Facility: [facility]:[place] : 1950 Planned Disposition: Home Anticipated Discharge Date: Discharge Date: Expected LOS: Initial Reviewer: [email or web address] Initial Review Date: 02/04/2019 Generated: 02/04/19 5:51 pm Comments DCP- Discharge Planning Updated by [email or web address]: Melani Juarez on 02/04/19 3:[address] Patient Name: MARC LOCO Admission Status: ER Accout number: [id number] Admission Date: 02-03-2019 : 1950 Admission Diagnosis: Attending: NEW EMERSON Current LOS: 1 Anticipated DC Date: Planned Disposition: Home Primary Insurance: [employer] Discharge Planning Comments: CM met with patient at bedside after explaining CM role and obtaining verbal consent. CM discussed availability / needs of home health and medical equipment. Patient denies any discharge needs at this time. STATES HAS ELECTRIC WHEELCHAIR AT HOME. CM TO FOLLOW AND ASSIST. Retail Warehouse Associate: Melani Juarez DCPIA - Discharge Planning Initial Assessment Updated by [email or web address]: Melani Juarez on 02/04/19 4:39 pm * Is the patient Alert and Oriented? Yes * PCP DEVIN * Pharm[facility] * Preadmission Environment Home with Family * ADLs Independent * Other Equipment ELECTRIC WHEELCHAIR * Community resources currently utilized None * Additional services required to return to the preadmission environment? No * Can the patient safely return to the preadmission environment? Yes * Has this patient been hospitalized within the prior 30 days at any hospital? No Last DP export: 02/04/19 3:39 p Patient Name: MARC LOCO Page [id number] at 1651 All edits/amendments must be made on the electronic document DICTATION DATE: 02/04/191650 CRIMINAL LEGAL ASSISTANT: RUY 02/04/191650 RPT#: [id number] DC DATE: STATUS: ADM IN [facility] [address] [place] [address] END OF REPORT
--- NOTE | 2019-02-04 17:30 | NUR ---
CALLED DOWN TO MED 3 TO GIVE REPORT. ONCE REPORT WAS GIVEN WENT INTO ROOM WITH NURSE MONITORING TO MOVE PT. WHEELED PT DOWN THE [facility] VIA BED WHEN SHE STATED THAT SHE DIDN'T WANT TO BE MOVED AND WANTED TO STAY ON THIS UNIT. CALLED HOUSE SUPRERVISOR AND WAS TOLD TO CANCEL TRANSFER. WHEELED PT BACK INTO ROOM. CALLED MED 3 TO NOTIFY OF CANCELLATION. A/O WITH NO SIGNS OF ACUTE DISTRESS. IV TO THE LT FOREARM WITH NO REDNESS OR SWELLING NOTED. DRESSING APPLIED TO EPI LOWER LEGS. BENAVIDES IN PLACE DRAINING CLEAR LIGHT YELLOW URINE. DENIES ANY FURTHER NEEDS. CL IN REACH AND BED IN LOWEST POSITION. CONINUE WITH PLAN OF CARE.
--- NOTE | 2019-02-04 17:45 | NUR ---
PATIENT WANTS RIGHT UNNA BOOT OFF BECAUSE SHE SAYS ITS TO TIGHT AND HURTS. TRIED TO ASK IF I COULD JUST LOOSEN, BUT STATED NO SHE WANTS IT OFF.
--- NOTE | 2019-02-04 18:00 | NUR ---
PATIENT WANTS BENAVIDES OUT AT THIS TIME. TRIED TO CALL JOSEPH VO. NO CALL BACK AT THIS TIME. NOTIFIED HS. STATED THAT SHE NEEDED TO LEAVE IT IN. EXPLAINED PATIENT REFUSES. PATIENT CALLED HS AND TALKED TO HER. STATED SHE WILL LEAVE IT IN AT THIS TIME. BENAVIDES CATH BALLOON DEFLATED AND REFLATED AND REPOSTIONED AT THIS TIME. PATIENT STATES SHE WILL JUST LEAVE IT IN. ALSO ALLOWED ME TO REWRAP RIGHT UNNA BOOT BUT NOT TIGHT. IV INTACT. CALL LIGHT WITHIN REACH. PATIENT TO BED TRANSFERRED TO [facility].
--- NOTE | 2019-02-04 18:30 | NUR ---
PATIENT IN BED WITH IV INTACT. TRIED TO CALL REPORT TO MED 3 NURSE. STATED SHE IS STARTING AN IV. GAVE REPORT TO NIGHT NURSE. STATED SHE WILL CALL REPORT TO NIGHT MED 3 NURSE.
[2019-02-04 20:58] VITALS: BP 146/85
[2019-02-05 01:31] VITALS: BP 127/72
[2019-02-05 05:54] VITALS: BP 117/70
[2019-02-05 06:02] LABS: BASOPHILS 0.4 % (0-2); HEMATOCRIT 37.6 % (36.0-48.0); HEMOGLOBIN 12.7 g/dL (12-16); IMMATURE GRANULOCYTES 0.4 % (0-5); LYMPHOCYTES 22.2 % (15-50); MCH 28.3 pg (26.0-34.0); MCHC 33.8 g/dL (31.0-37.0); MCV 83.9 fL (80.0-100.0); MEAN PLATELET VOLUME 9.1 fL (7.4-10.4); PLATELET COUNT 221 10x3/uL (130-400); RBC 4.48 10x6/uL (4.00-5.40); RDW 13.3 % (11.5-14.5); WBC 10.9 10x3/uL (4.8-10.8)
[2019-02-05 06:57] LABS: ANION GAP 9.1 mmol/L (8-16); CALCIUM 8.2 mg/dL (8.5-10.1); CARBON DIOXIDE 36.8 mmol/L (21.0-32.0); CREATININE - SERUM 1.6 mg/dL (0.6-1.3); MAGNESIUM - SERUM 1.7 mg/dL (1.8-2.4); PHOSPHOROUS 4.6 mg/dL (2.5-4.9); POTASSIUM - SERUM 3.9 mmol/L (3.5-5.1)
--- NOTE | 2019-02-05 07:00 | NUR ---
CALLED ME INTO ROOM STATING THAT HER IV WAS LEAKING. SITE IS LEAKING AND SWELLING NOTED. DC IV WITH CATH INTACT AND DRESSING APPLIED. WILL PASS ON IN REPORT.
[2019-02-05 08:47] VITALS: BP 133/68
--- NOTE | 2019-02-05 09:15 | NUR ---
PATIENT LEAVING AMA. [place] REMOVED. REFUSED MEDS. STATED SHE WOULD TAKE AT HOME. SWELLING BETTER IN LEGS FROM UNNA BOOTS. SAID SHE WAS TAKING THEM OFF BEFORE SHE LEAVES. WAITING FOR RIDE. NO IV. CALL LIGHT WITHIN REACH.
--- NOTE | 2019-02-05 10:10 | NUR ---
PATIENT SIGNED AMA PAPER. EXPLAINED TO PATIENT THE RISKS OF LEAVING AMA. VERBALIZED UNDERSTANDING. WAS TAKEN DOWN TO PRIVATE VEHICLE VIA WC BY FULLING MACHINE OPERATOR WITH PERSONAL BELONGINGS AT THIS TIME.
--- NOTE | 2019-02-05 11:45 | MORECARE ---
CASE MANAGEMENT DISCHARGE SUMMARY PATIENT: MARC LOCO UNIT: [id number] ADM DATE: 02/03/19 AGE: 68 : 50 SEX: F ROOM/BED: D.2225 AUTHOR: LAILA IRIZARRY PHYSICIAN: REFERRING PHYSICIAN: SAHIL EMERSON MD DATE OF SERVICE: 02/05/19 Discharge Plan Patient Name: MARC LOCO Facility: [facility]:[place] : 1950 Planned Disposition: Home Anticipated Discharge Date: Discharge Date: 02/05/2019 Expected LOS: Initial Reviewer: [email or web address] Initial Review Date: 02/04/2019 Generated: 02/05/19 12:45 pm Comments DCP- Discharge Planning Updated by [email or web address]: Melani Juarez on 02/04/19 3:[address] Patient Name: MARC LOCO Admission Status: ER Accout number: [id number] Admission Date: 02-03-2019 : 1950 Admission Diagnosis: Attending: NEW EMERSON Current LOS: 1 Anticipated DC Date: Planned Disposition: Home Primary Insurance: [employer] Discharge Planning Comments: CM met with patient at bedside after explaining CM role and obtaining verbal consent. CM discussed availability / needs of home health and medical equipment. Patient denies any discharge needs at this time. STATES HAS ELECTRIC WHEELCHAIR AT HOME. CM TO FOLLOW AND ASSIST. Traffic Incident Management Manager: Melani Juarez DCPIA - Discharge Planning Initial Assessment Updated by [id number]: Melani Juarez on 02/04/19 4:39 pm * Is the patient Alert and Oriented? Yes * PCP DEVIN * Pharmacy [facility] * Preadmission Environment Home with Family * ADLs Independent * Other Equipment ELECTRIC WHEELCHAIR * Community resources currently utilized None * Additional services required to return to the preadmission environment? No * Can the patient safely return to the preadmission environment? Yes * Has this patient been hospitalized within the prior 30 days at any hospital? No Last DP export: 02/04/19 3:51 p Patient Name: MARC LOCO Page 46562 at 1145 All edits/amendments must be made on the electronic document DICTATION DATE: 02/05/19 1145 PRECISION MACHINIST: RUY 02/05/19 1145 RPT#: [id number] DC DATE:02/05/19 STATUS: DIS IN [facility] [address] [place] [address] END OF REPORT
== END 2019-02-05 10:15 | disposition left against medical advice (07) | DRG 638 ==
LOC: D.ER 14:14 → D.MS 18:45
PROVIDERS: Emergency Medicine; ADMIT Emergency Medicine; ATTEND Emergency Medicine
DX: E11.628 Type 2 diabetes mellitus with other skin complications (principal); L03.116 Cellulitis of left lower limb; L03.115 Cellulitis of right lower limb; D64.9 Anemia, unspecified; E11.65 Type 2 diabetes mellitus with hyperglycemia; K21.9 Gastro-esophageal reflux disease without esophagitis; F41.8 Other specified anxiety disorders; G80.9 Cerebral palsy, unspecified; I50.9 Heart failure, unspecified

== ENCOUNTER 2019-06-15 13:11 | Inpatient (IN) | payer OTHER, MEDICARE ==
[~2019-06-15] VITALS: Ht 175.3 cm; Wt 115.9 kg
[~2019-06-15 13:11] MED LIST changes: +GLIMEPIRIDE1 MG PO; +LASIX40 MG PO; +VRAYLAR3 MG PO
[2019-06-15 15:38] VITALS: BP 122/61
--- NOTE | 2019-06-15 16:20 | NUR ---
RECIEVED REPORT FROM ER NURSE. STATED PATIENT IS COMING TO THE FLOOR WITH LACERATION TO RLE THAT REQUIRES SURGERY AND PATIENT DOESNT WANT TO HAVE SURGERY BECAUSE SHE DOESNT WANT TO BE PUT TO SLEEP. ASKED NURSE IF SHE NOTIFIED SURGEON AND SHE STATED SHE DIDNT KNOW IF HE KNEW.
--- NOTE | 2019-06-15 16:40 | NUR ---
PATIENT TO ROOM 2212. DRESSING TO LEG INTACT. BLOODY SHEETS AND PADS REMOVED OUT FROM UNDER PATIENT. FRIEND AT BEDSIDE. PATIENT STATING ALREADY THAT SHE DOESNT WANT TO BE PUT TO SLEEP FOR SURGERY. EXPLAINED TO PATIENT THAT THE PHYSICIANS WOULD BE INTO TALK TO HER. VERBALIZED UNDERSTANDING. IV INTACT. CALL LIGHT WITHIN REACH. ADMITTED AND ASSESSED AT THIS TIME.
[2019-06-15 16:44] VITALS: BP 118/49
[2019-06-15 17:14] LABS: BASOPHILS 0.2 % (0-2); EOSINOPHILS 0.7 % (0-7); HEMATOCRIT 34.5 % (36.0-48.0); HEMOGLOBIN 11.1 g/dL (12-16); IMMATURE GRANULOCYTES 0.5 % (0-5); LYMPHOCYTES 20.1 % (15-50); MCH 27.6 pg (26.0-34.0); MCHC 32.2 g/dL (31.0-37.0); MCV 85.8 fL (80.0-100.0); MEAN PLATELET VOLUME 8.9 fL (7.4-10.4); MONOCYTES 5.6 % (2-11); NEUTROPHILS 72.9 % (40-80); PLATELET COUNT 246 10x3/uL (130-400); RBC 4.02 10x6/uL (4.00-5.40); RDW 13.4 % (11.5-14.5)
--- NOTE | 2019-06-15 17:15 | NUR ---
DR. LORENZO TO ROOM AND EXPLAINED TO PATIENT IN FRONT OF ME AND RT THERAPIST THE RISKS OF NOT HAVING THE SURGERY, INCLUDING LOSING HER LEG BECAUSE OF INFECTION AND THE RISK ALSO POSSIBLY DYING. PATIENT STILL ARGUING STATED SHE DIDNT WANT TO BE PUT TO SLEEP. STATED SHE WOULD ONLY DO THE PROCUDURE UNDER A SPINAL EPIDURAL BECAUSE SHE THINKS THAT GOING UNDER ANESTHESIA FOR SURGERY WILL DAMAGE HER HEART. DR. LORENZO EXPLAINED TO HER THAT HE COULD TRY TO DO THE SURGERY WITH THE EPIDURAL ONLY, BUT THERE IS A RISK THAT IS WONT WORK OR THAT SHE MAY STILL HAVE TO BE PUT TO SLEEP. PATIENT STATED SHE STILL DID NOT WANT TO GO UNDER ANESTHESIA ON THE SPINAL EPIDURAL. DR. LORENZO STATED HE WOULD SPEAK WITH ANESTHESIA ABOUT THE EPIDURAL.
[2019-06-15 17:30] LABS: INR 0.99 (0.85-1.17); PROTIME 13.1 SECONDS (11.6-15.0)
[2019-06-15 17:37] LABS: ALBUMIN 3.1 g/dL (3.4-5.0); ANION GAP 12.5 mmol/L (8-16); BILIRUBIN - TOTAL 0.91 mg/dL (0.2-1.3); CARBON DIOXIDE 28.4 mmol/L (21.0-32.0); CREATININE - SERUM 1.2 mg/dL (0.6-1.3); POTASSIUM - SERUM 3.9 mmol/L (3.5-5.1); PROTEIN - SERUM 6.6 g/dL (6.4-8.2)
--- NOTE | 2019-06-15 17:40 | NUR ---
ANESTHESIA TO PATIENTS ROOM TO DISCUSS GENERAL ANESTHESIA AND SPINAL EPIDURAL TO PATIENT.
--- NOTE | 2019-06-15 18:00 | NUR ---
PATIENT STATED AT THIS TIME THAT SHE WOULD LIKE TO GO AHEAD WITH THE GENERAL ANESTHESIA AND GET THE SURGERY DONE.
--- NOTE | 2019-06-15 18:30 | NUR ---
CONSENTS SIGNED AND PREOP MEDS GIVEN. PATIENT IV INTACT. NO QUESTIONS OR COMPLAINTS. CALL LIGHT WITHIN REACH.
--- NOTE | 2019-06-15 18:50 | NUR ---
PATIENT STATED SHE IS NOT HAVING SURGERY THAT SHE CHANGED HER MIND AND NEEDS TO HAVE A SECOND OPINION. TRIED TO CALL SURGERY NO ANSWER AT THIS TIME.
--- NOTE | 2019-06-15 19:15 | NUR ---
REPORT GIVEN TO YUMI HERNANDEZ. YUMI SPOKE WITH DR. REY ABOUT PATIENT WANTING TO LEAVE AM.
[2019-06-15 19:44] VITALS: BP 118/49; Ht 175.3 cm; Wt 115.9 kg
--- NOTE | 2019-06-15 19:50 | NUR ---
DR. LORENZO BACK TO PATIENTS ROOM TO SPEAK TO PATIENT TO EXPLAIN AGAIN THE RISKS OF NOT HAVING THE SURGERY.
--- NOTE | 2019-06-15 20:15 | NUR ---
DURING SHIFT REPORT PT VOICES THAT SHE DOES NOT WANT TO HAVE SURGERY AND THAT SHE JUST WANTS TO GO HOME. AIDAN AND BJ NOTIFIED. BREVING AND SURGERY TEAM CAME BY PT ROOM TO EXPLAIN THE RISKS OF NOT HAVING SURGERY. PT STILL REFUSES TREATMENT. OBTAINED AMI SIGNATURE AND PT CALLED MARRY, HER FRIEND, TO COME PICK HER UP.
--- NOTE | 2019-06-15 20:30 | NUR ---
D/C IV TO THE LT AC WITH CATH INTACT. TRANSPORTED PT VIA WHEELCHAIR INTO CAR WITH FRIEND, MARRY. ALL VALUABLES CLEARED FROM ROOM AND TAKEN WITH PT.
== END 2019-06-15 20:30 | disposition left against medical advice (07) | DRG 605 ==
LOC: D.ER 13:11 → D.MS 14:24
PROVIDERS: Family Medicine; ADMIT Internal Medicine Nephrology; ATTEND Internal Medicine Nephrology
DX: S81.811A Laceration without foreign body, right lower leg, initial encounter (principal); S85.911 Laceration of unspecified blood vessel at lower leg level, right leg; I50.30 Unspecified diastolic (congestive) heart failure; G80.9 Cerebral palsy, unspecified; I87.8 Other specified disorders of veins; E66.9 Obesity, unspecified; Z68.38 Body mass index [BMI] 38.0-38.9, adult; E11.9 Type 2 diabetes mellitus without complications

== ENCOUNTER 2019-11-08 11:00 | Outpatient (CLI) | payer OTHER, MEDICARE ==
[2019-06-15 19:44] VITALS: BMI 37.7
== END 2019-11-08 12:00 | disposition home or self-care (01) ==
LOC: D.MAMMO 11:00
PROVIDERS: ATTEND Family Medicine
DX: Z12.31 Encounter for screening mammogram for malignant neoplasm of breast (principal)

== ENCOUNTER 2020-09-06 16:41 | Emergency (ER) | payer OTHER, MEDICARE ==
[~2020-09-06] VITALS: Ht 175.3 cm; Wt 118.2 kg
[2020-09-06 16:53] VITALS: Ht 175.3 cm; Wt 118.2 kg
[2020-09-06 17:52] LABS: BASOPHILS 0.5 % (0-2); EOSINOPHILS 2.1 % (0-7); HEMATOCRIT 39.3 % (36.0-48.0); HEMOGLOBIN 12.4 g/dL (12-16); IMMATURE GRANULOCYTES 0.1 % (0-5); LYMPHOCYTE ABS# 2.53 10x3/uL (1.18-3.74); LYMPHOCYTES 31.7 % (15-50); MCH 25.4 pg (26.0-34.0); MCHC 31.6 g/dL (31.0-37.0); MCV 80.4 fL (80.0-100.0); MEAN PLATELET VOLUME 9.3 fL (7.4-10.4); NEUTROPHIL ABS# 4.75 10x3/uL (1.56-6.13); NEUTROPHILS 59.6 % (40-80); RBC 4.89 10x6/uL (4.00-5.40); RDW 14.1 % (11.5-14.5)
[2020-09-06 18:02] LABS: PLATELET COUNT 177 10x3/uL (130-400)
[2020-09-06 18:32] LABS: ANION GAP 13.3 mmol/L (8-16); CALCIUM 8.9 mg/dL (8.5-10.1); CREATININE - SERUM 1.4 mg/dL (0.6-1.3); POTASSIUM - SERUM 4.3 mmol/L (3.5-5.1)
[2020-09-06] MEDS ORDERED: CYCLOBENZAPRINE10 MG PO (19:16)
[2020-09-06] MEDS ORDERED: ACETAMINOPHEN500 M1 PO (19:16)
[2020-09-06] MEDS ORDERED: IBUPROFEN800 MG PO (19:16)
[2020-09-06 19:20] VITALS: BP 163/87
== END 2020-09-06 19:20 | disposition home or self-care (01) ==
LOC: D.ER 16:41
PROVIDERS: Family Medicine
DX: S46.001A Unspecified injury of muscle(s) and tendon(s) of the rotator cuff of right shoulder, initial encounter (principal); M25.511 Pain in right shoulder; S51.811A Laceration without foreign body of right forearm, initial encounter; W19.XXXA Unspecified fall, initial encounter; Y93.9 Activity, unspecified; Y92.9 Unspecified place or not applicable; E11.9 Type 2 diabetes mellitus without complications; G80.9 Cerebral palsy, unspecified; K21.9 Gastro-esophageal reflux disease without esophagitis; Z79.84 Long term (current) use of oral hypoglycemic drugs